=== PATIENT | male | born 1955 | race Caucasian/White ===

== ENCOUNTER → 2019-12-16 10:18 | Outpatient (CLI) | payer MEDICARE, BC, SELFPAY ==
--- NOTE | 2019-12-16 | DI.MRI.S_ITS ---
PROCEDURE: MR LUMBAR SPINE WO CON INDICATIONS: Spinal stenosis, lumbar region with neurogenic cla TECHNIQUE: Noncontrast sagittal T1 spin echo and T2 fast echo, sagittal STIR, axial T1 and T2 fast spin echo through the lumbar spine. In cases with scoliosis, additional coronal T2 fast spin echo may be performed. COMPARISON: None. FINDINGS: Image quality: Excellent. Alignment and Curvature: There is normal bony alignment. Convex right and lumbar spine scoliosis. Bone Marrow: Reactive endplate change is noted adjacent to the L1-L2, L2-L3, L3-L4 at L5-S1 discs. No acute vertebral body compression fractures. Spinal Cord: Conus medullaris terminates at the L1-L2 disc level. Visualized cord demonstrates normal signal and size. Paraspinous Soft Tissues: No paravertebral masses. L1-L2: Loss of disc signal and height. Mild, diffuse disc bulge. Mild bilateral facet hypertrophy. Mild narrowing of the central canal. Mild right and moderate left neural foraminal narrowing. No neural compression. L2-L3: Loss of disc signal and height. Mild, diffuse disc bulge. Moderate facet and mild ligamentum flavum hypertrophy. Severe narrowing of the central canal with slight compression of the nerve roots of the cauda equina. Mild right and moderate left neural foraminal narrowing. L3-L4: Loss of disc signal and height. Mild, diffuse disc bulge. Moderate bilateral facet hypertrophy. Mild ligamentum flavum hypertrophy. Moderate to severe narrowing of the central canal. Moderate bilateral neural foraminal narrowing. No neural compression. L4-L5: Loss of disc signal and slight loss of disc height. Mild, diffuse disc bulge. Moderate right and mild left facet. Moderate narrowing of the central canal. Severe right and moderate left neural foraminal narrowing with compression of the exiting right L4 nerve root. L5-S1: Loss of disc signal. Mild diffuse disc bulge. Mild narrowing the central canal. Mild bilateral facet hypertrophy. No central stenosis. Severe right and mild left neural foraminal narrowing with compression of the exiting right L5 nerve root. IMPRESSION: 1. Convex right scoliosis. 2. Multilevel degenerative disc disease. 3. Multilevel facet arthropathy. 4. Severe L2-L3 central canal narrowing. Moderate to severe L3-L4 central canal narrowing. Moderate L4-L5 central canal narrowing. Mild L1-L2 and L5-S1 and central canal narrowing. 5. Slight compression of the nerve roots of the cauda equina at the level of the L2-L3 disc secondary to central canal narrowing. 6. Compression of the exiting right L4 nerve root and exiting right L5 nerve root secondary to neural foraminal narrowing. Dictated by: Emely Mcallister MD, PhD on 12/17/2019 at 13:56 Approved by: Emely Mcallister MD, PhD on 12/17/2019 at 14:01
== END ==
PROVIDERS: PCP Family Medicine; Referring Provider Family Medicine; Visit Provider Family Medicine
DX: M48.062 Spinal stenosis, lumbar region with neurogenic claudication (principal); M48.07 Spinal stenosis, lumbosacral region; M51.36 Other intervertebral disc degeneration, lumbar region; M51.37 Other intervertebral disc degeneration, lumbosacral region; M47.816 Spondylosis without myelopathy or radiculopathy, lumbar region; M47.817 Spondylosis without myelopathy or radiculopathy, lumbosacral region; M41.86 Other forms of scoliosis, lumbar region
CPT/HCPCS: 72148

== ENCOUNTER → 2020-01-10 09:10 | Outpatient (CLI) | payer MEDICARE, BC, SELFPAY ==
--- NOTE | 2020-01-10 09:15 | DI.MRI.S_ITS ---
PROCEDURE: MR CERVICAL SPINE WO CON INDICATIONS: Disease of spinal cord, unspecified TECHNIQUE: Noncontrast sagittal T1 spin echo and T2 fast spin echo, sagittal STIR, foraminal oblique sagittal T2 fast spin echo, and axial gradient echo or T2 fast spin echo through the cervical spine. COMPARISON: None. FINDINGS: Image quality: Excellent. Alignment and Curvature: Straightening of the normal lordotic curvature. Bone Marrow: No fracture. Multilevel degenerative endplate sclerosis and spurring. Diffuse facet arthropathy. Spinal Cord: Visualized spinal cord has normal size and signal. No cerebellar tonsillar herniation. Paraspinous Soft Tissues: No paravertebral masses. Prevertebral soft tissues are normal in thickness. C2-C3: Normal appearance. C3-C4: No canal stenosis. Severe right foraminal narrowing with nerve root compression. Mild to moderate left foraminal stenosis, with possible slight nerve root compression C4-C5: Mild canal narrowing. Moderate right foraminal stenosis with nerve root compression. Severe left foraminal stenosis with nerve root compression C5-C6: No canal stenosis. Mild right foraminal narrowing. Mild to moderate left foraminal narrowing with questionable nerve root compression C6-C7: No canal stenosis. No right foraminal stenosis. Severe left foraminal narrowing with nerve root compression C7-T1: Normal appearance. IMPRESSION: Straightening of the normal lordotic curvature. Diffuse midcervical spondylosis, with numerous bilateral foraminal stenoses as detailed above by spinal level Mild canal narrowing at C4-C5. Dictated by: Avila Carrion M.D. on 01/10/2020 at 12:08 Approved by: Avila Carrion M.D. on 01/10/2020 at 12:14
== END ==
PROVIDERS: PCP Family Medicine; Referring Provider Family Medicine; Visit Provider Family Medicine
DX: M47.812 Spondylosis without myelopathy or radiculopathy, cervical region (principal); M48.02 Spinal stenosis, cervical region
CPT/HCPCS: 72141

== ENCOUNTER → 2021-04-30 09:00 | Outpatient (CLI) | payer MEDICARE, BC, SELFPAY ==
[2021-04-30 19:29] LABS: Add Manual Diff / Slide Review NO; Basophils Absolute Auto 0 /uL (0-100); Basophils Percent Auto 0.9 % (0-2); Eosinophils Absolute Auto 100 /uL (0-450); Eosinophils Percent Auto 2.1 % (2-4); Hematocrit 41.6 % (41-53); Hemoglobin 14.2 g/dL (13.5-17.5); Lymphocytes Absolute Auto 1000 /uL (1100-4500); Lymphocytes Percent Auto 24.4 % (25-40); Mean Corpuscular HGB Conc 34.1 % (30-36); Mean Corpuscular Hemoglobin 33.5 PG (26-34); Mean Corpuscular Volume 98.3 fL (80-100); Monocytes Absolute Auto 400 /uL (0-900); Monocytes Percent Auto 10.9 % (3-14); Neutrophils Absolute Auto 2400 /uL (1500-7000); Neutrophils Percent Auto 61.7 % (50-75); Platelet Count 210 X10^3/uL (150-400); Red Blood Cell Count 4.23 X10^6/uL (4.5-5.9); Red Cell Distribution Width 13.4 % (11.6-14.8); White Blood Cell Count 3.9 X10^3/uL (4.5-11.0)
== END ==
PROVIDERS: PCP Family Medicine; Referring Provider Physician Assistant; Visit Provider Physician Assistant
DX: R79.89 Other specified abnormal findings of blood chemistry (principal)
CPT/HCPCS: 85025

== ENCOUNTER 2025-04-08 10:26 | Emergency (ER) | payer MEDICARE, BC, SELFPAY ==
[2025-04-08 10:51] VITALS: BP 131/62; PULSE 62; RESP 18; TEMP 36.6; O2SAT 97; BMI 30.2
--- NOTE | 2025-04-08 10:59 | DI.RAD.S_ITS ---
PROCEDURE: XR HAND RT MIN 3V INDICATIONS: hit hand, pain TECHNIQUE: 3 views of the hand(s) acquired. COMPARISON: None. FINDINGS: Bones: There is prior fusion of 1st MCP joint with postsurgical changes. Osteoarthritic changes are noted throughout right hand and wrist joints. No fractures or dislocations. Carpal bones are normally aligned. No suspicious bony lesions. Soft tissues: No suspicious soft tissue calcifications. IMPRESSION: No acute right hand fracture or dislocation. Prior surgical fusion of 1st MCP joint. 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 Dictated by: Isaias Cameron M.D. on 04/08/2025 at 11:16 Approved by: Isaias Cameron M.D. on 04/08/2025 at 11:20
[2025-04-08] MEDS: ACETAMINOPHEN 325 MG TABLET 975 MG PO (12:42)
[2025-04-08 12:46] VITALS: BP 114/58; PULSE 62; RESP 18; O2SAT 96
--- NOTE | 2025-04-08 18:10 | ED.UPPEXIN ---
HPI - Extremity Injury (Upper) <Kosta Rae PA-C - Last Filed: 04/08/25 18:16> General Chief Complaint: Extremity Injury, Upper Stated Complaint: right thumb broken? Time Seen by Provider: 04/08/25 12:09 Source: patient Mode of arrival: Ambulatory History of Present Illness HPI narrative: 69-year-old male presents to the ED status post a right thumb injury sustained 2 days prior to arrival. Patient accidentally injured his right thumb when he was splitting wood. Patient complains pain to the right thumb. No numbness, tingling, weakness. Is able to range the thumb, albeit with pain. Related Data Home Medications Medication Instructions Recorded Confirmed albuterol sulfate 90 mcg/actuation 2 puff inhalation Q4-6H PRN 04/27/21 06/22/21 aerosol inhaler lisinopril 10 mg tablet 10 mg PO DAILY 04/27/21 06/22/21 cetirizine 10 mg capsule (Wal-Zyr 10 mg PO DAILY PRN 04/30/21 06/22/21 (cetirizine)) ferrous sulfate 27 mg iron tablet 27 mg PO DAILY 04/30/21 06/22/21 pravastatin 20 mg tablet 20 mg PO HS 04/30/21 06/22/21 pravastatin 40 mg tablet 40 mg PO DAILY 04/30/21 06/22/21 Previous Rx's Medication Instructions Recorded fluticasone propionate 50 1 spray intranasal QDAY ##1 06/07/17 mcg/actuation nasal spray,suspension (Flonase Allergy Relief) gabapentin 100 mg capsule 100 mg PO QID #60 caps 06/22/21 oxycodone-acetaminophen 5 mg-325 1 tab PO Q6H PRN pain 3 days #10 04/08/25 mg tablet (Percocet) tabs Allergies Allergy/AdvReac Type Severity Reaction Status Date / Time adhesive Allergy Unknown Verified 06/22/21 08:09 meperidine [From DEMEROL] AdvReac Unknown severe Verified 06/22/21 08:09 vomiting Review of Systems <Kosta Rae PA-C - Last Filed: 04/08/25 18:16> Constitutional Constitutional: Denies chills, Denies fatigue, Denies fever(s), Denies frequent falls, Denies lethargy and Denies weakness Eyes Eyes: Denies change in vision, Denies eye discharge, Denies irritation and Denies loss of vision ENT Ears, Nose, Mouth, and Throat: Denies change in voice, Denies dizziness, Denies neck pain, Denies sore throat and Denies throat swelling Cardiovascular Cardiovascular: Denies chest pain, Denies irregular heart rhythm, Denies lightheadedness, Denies palpitations, Denies dyspnea, Denies dyspnea on exertion and Denies orthopnea Respiratory Respiratory: Denies cough, Denies dyspnea, Denies dyspnea on exertion and Denies wheezing Gastrointestinal Gastrointestinal: Denies abdominal pain, Denies change in bowel habits, Denies diarrhea, Denies nausea and Denies vomiting Musculoskeletal Musculoskeletal: Denies neck pain and Denies numbness Comments: Right thumb swelling, pain Integumentary/Breasts Skin/Breast: Denies pruritus, Denies erythema, Denies rash and Denies wounds Neurologic Neurologic: Denies behavioral changes, Denies confusion, Denies dizziness, Denies frequent falls, Denies loss of vision, Denies numbness and Denies weakness Psychiatric Psychiatric: Denies anxiety, Denies behavioral changes, Denies confusion, Denies depression, Denies homicidal ideation and Denies suicidal ideation Endocrine Endocrine: Denies fatigue, Denies flushing and Denies palpitations Hematologic/Lymphatic Hematologic/Lymphatic: Denies easy bruising Allergic/Immunologic Allergic/Immunologic: Denies urticaria, Denies throat swelling and Denies wheezing Patient History <Kosta Rae PA-C - Last Filed: 04/08/25 18:16> Medical History Encounter for vitamin deficiency screening Screening for thyroid disorder Screening for colon cancer Environmental allergies Family history of pulmonary fibrosis History of asbestos exposure Pre-op evaluation Encounter for removal of sutures Encounter for post surgical wound check Visit for wound check Screening for prostate cancer Surgical History S/P sinus surgery Social History Smoking Status: Never smoker Smoking Status: Never smoker Exam <Kosta Rae PA-C - Last Filed: 04/08/25 18:16> Narrative Exam Narrative: Const General:?cooperative, healthy appearing and comfortable HENCA Head:?normal to inspection Ears:?hearing grossly normal bilaterally Nose:?external nose normal Face and sinus:?normal facial exam and sinuses nontender Mouth:?oral mucosae normal Throat:?posterior oropharynx normal Eyes General:?appearance normal, both eyes and all related structures Neck Neck:?normal visual inspection and no lymphadenopathy noted Resp Effort & Inspection:?normal respiratory effort Auscultation:?clear to auscultation bilaterally Cardio Rate:?regular rate Rhythm:?regular rhythm Musculoskeletal Right thumb appears swollen, tender to touch. There is full range of motion. Strength and sensation is intact. Neurovascularly intact. Neuro General:?patient alert, patient awake and patient oriented x3 Initial Vital Signs Initial Vital Signs: Vital Signs Temperature 97.8 F 04/08/25 10:51 Pulse Rate 62 04/08/25 10:51 Respiratory Rate 18 04/08/25 10:51 Blood Pressure 131/62 04/08/25 10:51 Pulse Oximetry 97 04/08/25 10:51 Oxygen Delivery Method Room Air 04/08/25 10:51 <Paloma Orozco MD - Last Filed: 04/08/25 21:50> Initial Vital Signs Initial Vital Signs: Vital Signs Temperature 97.8 F 04/08/25 10:51 Pulse Rate 62 04/08/25 10:51 Respiratory Rate 18 04/08/25 10:51 Blood Pressure 131/62 04/08/25 10:51 Pulse Oximetry 97 04/08/25 10:51 Oxygen Delivery Method Room Air 04/08/25 10:51 Course <Kosta Rae PA-C - Last Filed: 04/08/25 18:16> Orders Ordered: Discontinued Medications Acetaminophen (Acetaminophen 325 Mg Tablet) 975 mg PO NOW ONE Stop: 04/08/25 12:37 Last Admin: 04/08/25 12:42 Dose: 975 mg Documented By: RHYS Vital Signs Vital signs: Vital Signs - 8 hr 04/08/25 10:51 04/08/25 12:46 Temperature 97.8 F Pulse Rate 62 62 Respiratory Rate 18 18 Blood Pressure 131/62 114/58 L Pulse Oximetry 97 96 Oxygen Delivery Method Room Air Room Air <Paloma Orozco MD - Last Filed: 04/08/25 21:50> Orders Ordered: Discontinued Medications Acetaminophen (Acetaminophen 325 Mg Tablet) 975 mg PO NOW ONE Stop: 04/08/25 12:37 Last Admin: 04/08/25 12:42 Dose: 975 mg Documented By: RHYS Vital Signs Vital signs: Vital Signs - 8 hr 04/08/25 10:51 04/08/25 12:46 Temperature 97.8 F Pulse Rate 62 62 Respiratory Rate 18 18 Blood Pressure 131/62 114/58 L Pulse Oximetry 97 96 Oxygen Delivery Method Room Air Room Air MDM - Extremity Injury (Upper) <Kosta Rae PA-C - Last Filed: 04/08/25 18:16> MDM Narrative Medical decision making narrative: 69-year-old male presents to the ED status post a right thumb injury sustained 2 days prior to arrival. Concern for fracture/dislocation versus musculoskeletal sprain/strain versus other. X-ray was obtained, which shows no acute right hand fracture or dislocation. Prior surgical fusion of 1st MCP joint noted on x-ray. Mild right hand and wrist joint osteoarthritis also noted on x-ray. Discussed findings with patient. Patient fitted with a thumb spica splint for comfort and healing. Patient was given Tylenol in the ED. patient was prescribed some pain medications to use at home. Recommend follow-up with PCP as soon as possible. ED return precautions were discussed with patient. Patient verbalized understanding. Medical records reviewed: Yes Discharge Plan Departure Patient Disposition: Home Clinical Impression: Injury of right thumb Qualifiers: Encounter type: initial encounter Qualified Code(s): S69.91XA - Unspecified injury of right wrist, hand and finger(s), initial encounter Instructions: DI for Finger Sprain Activity Restrictions/Additional Instructions: You were evaluated in the ED today for a right thumb injury. Your x-ray did not show any new fractures or dislocations. You have been fitted with a thumb spica splint for comfort and healing. You were given Tylenol in the ED. You were also being prescribed some narcotic pain medications which might make you sleepy. Please do not take these medications if you are operating machinery or driving. Please follow-up with your PCP as soon as possible. Return to the ED if you have worsening symptoms such as numbness, tingling, weakness. Prescriptions: New oxycodone-acetaminophen [Percocet] 5-325 mg tablet 1 tab PO Q6H PRN (Reason: pain) 3 Days Qty: 10 0RF No Action fluticasone propionate [Flonase Allergy Relief] 9.9 ML spray,suspension 1 spray Intranasal QDAY Qty: 1 2RF pravastatin 40 mg tablet 40 mg PO DAILY Rx Instructions: take one tablet daily along with 20 mg tablet pravastatin 20 mg tablet 20 mg PO HS Rx Instructions: take one tablet daily along with 40 mg tablet Wal-Zyr (cetirizine) 10 mg capsule 10 mg PO DAILY PRN ferrous sulfate 27 mg iron tablet 27 mg PO DAILY lisinopril 10 mg tablet 10 mg PO DAILY albuterol sulfate 90 mcg/actuation HFA aerosol inhaler 2 puff inhalation Q4-6H PRN gabapentin 100 mg capsule 100 mg PO QID Qty: 60 3RF Referrals: Palak Alberto PA-C [Primary Care Provider] - Stand Alone Forms: Patient Portal/API/Survey ED Sign-out <Paloma Orozco MD - Last Filed: 04/08/25 21:50> Cosign ED Attending Cosignature Attestation: I was immediately available in the department for consultation. This documentation has been reviewed and I agree with assessment and plan. Supervised by Paloma Orozco MD
== END 2025-04-08 12:47 | disposition home or self-care (01) ==
PROVIDERS: Emergency Provider Student in an Organized Health Care Education/Training Program; PCP Physician Assistant
DX: S69.91XA Unspecified injury of right wrist, hand and finger(s), initial encounter (principal); X58.XXXA Exposure to other specified factors, initial encounter
CPT/HCPCS: 73130; 99283